=== PATIENT | male | born 1985 | race Caucasian/White ===

== ENCOUNTER 2018-06-25 21:09 | Outpatient (CLI) | payer OTHER ==
--- NOTE | 2018-06-26 09:17 | Ultrasound Report ---
Reason: R SUBMANDIBULAR NECK MASS Procedure Date: 06/25/2018 Accession Number: [id number] / [id number] Procedure: US - Head or Neck Soft Tissue CPT Code: FULL RESULT: EXAM: THYROID ULTRASOUND EXAM DATE: 06/25/2018 09:38 PM. CLINICAL HISTORY: R SUBMANDIBULAR NECK MASS. COMPARISON: None. TECHNIQUE: Real time sonographic imaging of the thyroid was performed by the musculoskeletal physiotherapist. Multiple field service representative static images were saved for review. FINDINGS: At the area of interest adjacent to the right submandibular gland there is a soft tissue mass, 2.4 x 2.3 x 0.8 cm, likely a lymph node. IMPRESSION: Likely prominent lymph node at the area of interest. Recommend follow-up evaluation, for example in 4-6 weeks. [facility]
== END 2018-06-25 21:10 | disposition home or self-care (01) ==
LOC: DI 21:09
PROVIDERS: ATTEND Family Medicine
DX: R22.1 Localized swelling, mass and lump, neck (principal)
CPT/HCPCS: 76536